=== PATIENT | female | born 1985 | race Caucasian/White ===

== ENCOUNTER → 2020-10-28 | Outpatient (CLI) | payer MEDICAID, SELFPAY | LOC: M LABSMTC 10:22 | PROVIDERS: ATTEND Family Medicine | DX: Z20.828 Contact with and (suspected) exposure to other viral communicable diseases (principal) ==

== ENCOUNTER → 2021-03-15 | Outpatient (CLI) | payer OTHER ==
--- NOTE | 2021-03-15 10:23 | REP ---
INDICATION: LBP/THORACIC SPINE PAIN. Chronic low back and thoracic back pain. COMPARISON: None. TECHNIQUE: Sagittal and axial T1 and T2-weighted scans are acquired in the usual fashion with and without fat saturation. Sequences include spin echo, turbo spin-echo, and STIR imaging sequences. FINDINGS: Thoracic vertebral body heights are preserved and alignment is normal. There is a very small hemangioma in the right side of the T11 vertebral body. There is also a 1.4 cm hemangioma in the T7 vertebral body to the left of midline. Cortical and medullary bone signal intensity are otherwise normal. No fracture or collapse is seen. The thoracic spinal cord is normal in course, caliber, and signal intensity on T1 and T2 weighted scans. No cord compressive lesion is seen. No extra vertebral abnormality is observed. No neural foraminal narrowing is observed. IMPRESSION: Negative MRI study of the thoracic spine. <Electronically signed by Frank Munson > 03/15/21 2027
== END ==
LOC: M PLARAD 08:58
PROVIDERS: ATTEND Nurse Practitioner Family
DX: M54.15 Radiculopathy, thoracolumbar region (principal)

== ENCOUNTER → 2021-04-04 | Outpatient (REF) | payer OTHER | LOC: M SFHCWAGY 17:26 | PROVIDERS: ATTEND Advanced Practice Midwife | DX: Z12.4 Encounter for screening for malignant neoplasm of cervix (principal) ==

== ENCOUNTER → 2025-06-06 | Outpatient (REF) | payer OTHER | LOC: M PLALAB 08:37 | PROVIDERS: ATTEND Nurse Practitioner Family | DX: Z53.9 Procedure and treatment not carried out, unspecified reason (principal) ==

== ENCOUNTER → 2025-06-06 | Outpatient (CLI) | payer OTHER ==
[2025-06-06 10:39] LABS: PLATELET COUNT, AUTOMATED 231 10^3/uL (150-450)
[2025-06-06 11:01] LABS: TOTAL PROTEIN,RANDOM URINE 9.3 MG/DL (0.0-14.0)
[2025-06-06 11:06] LABS: LDH LACTATE DEHYDROGENASE 136 U/L (120-246)
[2025-06-06 11:08] LABS: ALT/SGPT 10 U/L (7.0-40); AST/SGOT 14 U/L (<34); CREATININE FOR GFR 0.60 MG/DL (0.55-1.30); GLOMERULAR FILTRATION RATE > 90.0 (>60)
[2025-06-06 11:31] LABS: HIV 1&2 SCREEN NEGATIVE (NEGATIVE)
[2025-06-06 11:38] LABS: HEPATITIS C VIRUS ABY INDEX < 0.02 INDEX (<0.8)
[2025-06-06 13:29] LABS: Trichomonas vaginalis (AMP) NOT DETECTED (NEGATIVE)
[2025-06-06 13:53] LABS: GC DNA AMPLIFICATION NEGATIVE (NEGATIVE)
== END ==
LOC: M PLALAB 08:51
PROVIDERS: ATTEND Nurse Practitioner Family
DX: Z34.80 Encounter for supervision of other normal pregnancy, unspecified trimester (principal)

== ENCOUNTER → 2025-08-02 | Outpatient (CLI) | payer OTHER | LOC: M WHC 10:03 | PROVIDERS: ATTEND Specialist | DX: Z36.89 Encounter for other specified antenatal screening (principal); Z3A.18 18 weeks gestation of pregnancy ==

== ENCOUNTER → 2025-09-01 | Outpatient (CLI) | payer OTHER | LOC: M WHC 09:24 | PROVIDERS: ATTEND Advanced Practice Midwife | DX: Z36.2 Encounter for other antenatal screening follow-up (principal) ==

== ENCOUNTER → 2025-10-03 | Outpatient (CLI) | payer OTHER ==
[2025-10-03 14:07] LABS: PLATELET COUNT, AUTOMATED 188 10^3/uL (150-450)
[2025-10-03 14:39] LABS: GLUCOSE CHALLENGE TEST 1 HOUR 116 MG/DL (LESS THAN 140)
[2025-10-03 15:08] LABS: HIV 1&2 SCREEN NEGATIVE (NEGATIVE)
[2025-10-03 15:15] LABS: Trichomonas vaginalis (AMP) NOT DETECTED (NEGATIVE)
[2025-10-03 15:16] LABS: HEPATITIS C VIRUS ABY INDEX < 0.02 INDEX (<0.8)
[2025-10-03 16:55] LABS: GC DNA AMPLIFICATION NEGATIVE (NEGATIVE)
== END ==
LOC: M LAB 12:13
PROVIDERS: ATTEND Obstetrics & Gynecology
DX: Z34.80 Encounter for supervision of other normal pregnancy, unspecified trimester (principal)